=== PATIENT | male | born 1970 | race Two or more races ===

== ENCOUNTER 2019-07-07 19:12 | Inpatient (IN) | payer OTHER ==
[~2019-07-07] VITALS: Ht 180.3 cm; Wt 100.0 kg
[2019-07-07] MEDS ORDERED: NITROGLYCERIN 0.2MG/HR TOPICAL PATCH TD ONE (20:15)
[2019-07-07] MEDS ORDERED: LORazepam 0.5 MG TAB PO ONE (20:15)
[2019-07-07] MEDS ORDERED: ASPirin 81 mg TAB PO ONE (20:15)
[2019-07-07 20:34] LABS: Basophils # (auto) 0.1 uL; Basophils % (auto) 0.8 % (0.0-2.0); Eosinophils # (auto) 0.1 uL; Hematocrit 48.5 % (41.0-53.0); Hemoglobin 16.8 g/dL (13.5-17.5); Lymphocytes # (auto) 1.1 uL; Lymphocytes % (auto) 15.1 % (10.0-50.0); Mean Corpuscular Hemoglobin 30.5 pg (28.0-32.0); Mean Corpuscular Hgb Conc. 34.6 g/dL (32.0-36.0); Mean Corpuscular Volume 88.2 fL (80.0-100.0); Monocytes # (auto) 0.6 uL; Neutrophils # (auto) 5.2 uL; Neutrophils % (auto) 73.1 % (37.0-80.0); Platelet Count (auto) 191 10^3/uL (140-450); Red Blood Cells 5.49 10^6/uL (4.5-5.90); Red Cell Distribution Width 13.6 % (11.8-14.3); White Blood Cell 7.1 10^3/uL (4.4-10.8)
[2019-07-07 20:50] LABS: INR 1.02 (0.9-1.15)
[2019-07-07 20:53] LABS: Albumin 4.1 g/dL (3.4-5.0); Calcium 9.2 mg/dL (8.5-10.1); Magnesium 2.3 mg/dL (1.6-2.6); Potassium 4.5 mmol/L (3.5-5.1)
[2019-07-07 21:00] LABS: BUN/Creatinine Ratio 14.7; Bilirubin, Total 0.3 mg/dL (0.2-1.0); Total Protein 7.8 g/dL (6.4-8.2)
[2019-07-07] MEDS ORDERED: SODIUM CHLORIDE 0.9% 1,000 ML IV ONE (21:15)
[2019-07-07] MEDS ORDERED: ENOXAPARIN SOD 80 MG/0.8ML SYRINGE SC ONE (21:15)
[2019-07-07] MEDS ORDERED: ENOXAPARIN SOD 30 MG/0.3 ML SYRINGE IV ONE (21:15)
[2019-07-07] MEDS ORDERED: InsuLIN REG 1unit/0.01ml Soln (100units/ml) IV ONE (21:15)
[2019-07-07 23:09] LABS: Urine Bacteria NONE SEEN /hpf (None Seen); Urine Blood Negative /uL (Negative); Urine Specific Gravity 1.033 (1.001-1.035); Urine WBC <1 /hpf (0 - 3)
[2019-07-08] VITALS (7 sets, daily range): BP systolic 138–149; BP diastolic 81–98
[2019-07-08] MEDS ORDERED: MORPHINE SULF INJ 2 MG/ML SYRINGE 1ML IV PRN (00:45)
[2019-07-08] MEDS ORDERED: NITROGLYCERIN 0.4 MG SL TAB SL PRN (00:45)
[2019-07-08] MEDS ORDERED: ATORVASTATIN 20 MG TAB PO ONE (00:45)
[2019-07-08] MEDS ORDERED: TEMAZEPAM 15 MG CAP PO PRN (00:45)
[2019-07-08] MEDS ORDERED: ACETAMINOPHEN 325 MG TAB PO PRN (00:45)
[2019-07-08] MEDS ORDERED: ONDANSETRON HCL 4 MG/2 ML VIAL IV PRN (00:45)
[2019-07-08] MEDS: SODIUM CHLORIDE 0.9% 1,000 ML IV SCH ×2 (01:08→17:11)
[2019-07-08] MEDS: METOPROLOL TARTRATE 25 MG TAB PO SCH ×3 (01:09→22:14)
[2019-07-08 02:57] LABS: Cholesterol 211 mg/dL (< 200)
[2019-07-08 02:59] LABS: HDL Cholesterol 15 mg/dL (40-59); LDL Cholesterol 169 mg/dL (< 100); Triglycerides 147 mg/dL (< 150)
--- NOTE | 2019-07-08 03:30 | NUR ---
Telemetry admit from ER [facility]K admitted to Telemetry unit. Patient oriented to Karina Haque, primary RN, unit, room, bed, and unit policies regarding patient care and visiting hours. Patient now on continuous telemetry monitoring, tele box # 76 and telemetry reading on arrival to unit is HR 84, NSR. Patient is on 2 liters of oxygen via nasal cannula. Respirations even and unlabored. Patient has no S/S of distress/SOB and no complaints of pain. Patient is AAOx4. Patient's girlfriend is at bedside. All questions and concerns addressed, patient verbalized understanding.
--- NOTE | 2019-07-08 07:00 | NUR ---
CLOSING NOTE Patient is on 2 liters of oxygen via nasal cannula. Patient's respirations even and unlabored. Patient has no S/S of distress/SOB or pain.
--- NOTE | 2019-07-08 08:00 | NUR ---
Opening Shift Note Assumed care of patient, awake and alert. No S/S of distress/SOB or pain. Instructed on POC and to call for assist PRN, will continue to monitor for changes Q1hr and PRN.
[2019-07-08] MEDS: FAMOTIDINE 20 MG TAB PO SCH ×2 (09:48→22:14)
[2019-07-08] MEDS ORDERED: ENOXAPARIN SOD 100 MG/1 ML SYRINGE SC SCH ×2 (10:00→22:00)
[2019-07-08] MEDS ORDERED: ENOXAPARIN SOD 120 MG/0.8 ML SYRINGE SC SCH (10:00)
[2019-07-08] MEDS ORDERED: NITROGLYCERIN 0.4 MG SL TAB SL ONE (10:00)
[2019-07-08] MEDS ORDERED: ASPirin 81 mg TAB PO SCH (10:00)
--- NOTE | 2019-07-08 10:30 | NUR ---
Cardiology consult Dr. Blanc at bedside, patient was advised. Possible left heart cath today.
--- NOTE | 2019-07-08 12:05 | NUR ---
Received orders from Dr. Blanc to discontinue Lovenox SC, will carry out. Addendum: 07/08/19 at 1235 by Sterling Wynn RN 1205-Dr. Blanc made aware that Lovenox 100mg SC was administered to the patient at 0948. Dr. Blanc fine with it.
[2019-07-08] MEDS ORDERED: LIDOCAINE 2%HCL (LOCAL ANESTH.) INJ 20ML MDV ONE (12:08)
[2019-07-08] MEDS ORDERED: IODIXANOL 320MG/ML 100ML BTL IV ONE (12:08)
[2019-07-08] MEDS ORDERED: ANGIOMAX 250 MG VIAL IV ONE (12:13)
[2019-07-08] MEDS ORDERED: SODIUM CHL 0.9% 0 ML ONE (12:14)
[2019-07-08] MEDS ORDERED: HEPARIN SODIUM (PORCINE) 5000 UNITS/ML 1ML VIAL ONE (12:14)
[2019-07-08] MEDS ORDERED: MIDAZOLAM HCL 1MG/1ML-2 ML VIAL ONE (12:14)
[2019-07-08] MEDS ORDERED: fentaNYL CITRATE 100 MCG/2 ML VL ONE (12:14)
[2019-07-08] MEDS ORDERED: VERAPAMIL 2.5MG/ML INJ 2ML VIAL IV ONE (12:14)
--- NOTE | 2019-07-08 12:28 | NUR ---
Patient taken to Circuit Design Engineer via bed for Left Heart Catheterization to be performed by Dr. Blanc. Consents signed by patient. Gave reports to Circuit Design Engineer
--- NOTE | 2019-07-08 13:19 | NUR ---
Received a call from Dr. Blanc, patient needs to be transferred to [place] immediately today. Patient is a candidate for CABG. Will inform hospitalist assigned about this. Patient is still in [facility] at this time.
--- NOTE | 2019-07-08 13:50 | NUR ---
Informed Dr. Hodge that patient needs to be transferred to [place] immediately today. Patient is a candidate for CABG.Patient currently in Assistant Manager recovery room.
--- NOTE | 2019-07-08 14:00 | NUR ---
Paged Angie plant utility person clinical case manager and returned call re: Transfer to [place]. Patient needs CABG. Instructions received to fax clinicals to [facility] fax # [phone].
--- NOTE | 2019-07-08 14:05 | NUR ---
Patient back to room via bed S/P LHC performed by Dr. Blanc. Reports received from Outdoor Adventure Leader RN. Patient is alert and oriented, not in respiratory distress. With vasc band left wrist intact. Bed alarm on and side rails up x2.
--- NOTE | 2019-07-08 14:20 | NUR ---
Dr. Hodge at bedside. Orders received. Patient is for transfer to [facility].
[2019-07-08] MEDS ORDERED: DEXTROSE (50%) 50ML SYRG IV PRN (14:30)
--- NOTE | 2019-07-08 14:30 | NUR ---
Deflated 2ml of air from vasc band left wrist. No bleeding noted.
--- NOTE | 2019-07-08 14:44 | NUR ---
Faxed transfer orders to [facility] fax #[phone]. Waiting for reply.
--- NOTE | 2019-07-08 14:54 | NUR ---
07/08/19 call center consultant-I received a page regarding this patient needing to be transferred to [facility]. I asked nurse Katz to fax order to [facility]. I called [facility] [phone] to speak with family preservation caseworker, was left on hold for more than 10 minutes-not able to talk with a live person, unable to leave a message. Will try again Addendum: 07/09/19 at 0907 by Angie Chang RN I spoke with Nurse Katz 07/08/19-she received a call from [facility] and they are working on the transfer.
--- NOTE | 2019-07-08 15:00 | NUR ---
Deflated 2ml of air at vasc band left wrist no bleeding noted.
--- NOTE | 2019-07-08 15:35 | NUR ---
Deflated 2ml of air at vasc band, left wrist. Noted to have some minimal bleeding to the site. Inflated back the 2ml of air. Will check in 30 minutes.
--- NOTE | 2019-07-08 16:11 | NUR ---
Received a call from [facility], verified that they already received the faxed informations about the patient for transfer. They will call again for bed availability.
--- NOTE | 2019-07-08 16:15 | NUR ---
Deflated 2ml of air via vasc band, left wrist. No bleeding noted.
--- NOTE | 2019-07-08 17:00 | NUR ---
Deflated 2ml of air from vasc band, left wrist. No bleeding noted.
[2019-07-08] MEDS: InsuLIN REG 1unit/0.01ml Soln (100units/ml) SC SCH ×2 (17:11→22:15)
[2019-07-08] MEDS: ACCU-CHEK COMFORT CURVE STRIP VI SCH ×2 (17:11→22:14)
--- NOTE | 2019-07-08 17:30 | NUR ---
Vasc band on left wrist removed. No bleeding noted. Tegaderm dressing applied.
--- NOTE | 2019-07-08 18:53 | NUR ---
Received a call from [facility] MD will be Dr. Rosi Edge. ETA [id number].
--- NOTE | 2019-07-08 19:20 | NUR ---
Gave reports to Xavier LAFLEUR at [facility].
--- NOTE | 2019-07-08 20:00 | NUR ---
Opening Shift Note Assumed care of patient, awake and alert. No S/S of distress/SOB or pain. Patient is on 2 liters of oxygen via nasal cannula. Respirations even and unlabored. Instructed on POC and to call for assist PRN, will continue to monitor for changes Q1hr and PRN.
[2019-07-08] MEDS ORDERED: ATORVASTATIN 20 MG TAB PO SCH (22:00)
--- NOTE | 2019-07-08 22:55 | NUR ---
Discharge Transfers Patient is being transferred to [facility], patient is to follow up with accepting doctor at the receiving facility. Patient has no S/S of SOB/Distress or pain. Patient is asymptomatic. Patient being transferred via ambulance per ACLS protocol.
== END 2019-07-08 22:55 | disposition short-term general hospital (02) | DRG 281 ==
LOC: ER 19:12 → TELE 19:13 → TELE-WESTW 07-08 01:12
PROVIDERS: ADMIT Nurse Practitioner; ATTEND Nurse Practitioner
PROC: 4A023N7 Measurement of Cardiac Sampling and Pressure, Left Heart, Percutaneous Approach (ICD-10-PCS; principal; 2019-07-08)
PROC: B211YZZ Fluoroscopy of Multiple Coronary Arteries using Other Contrast (ICD-10-PCS; 2019-07-08)
PROC: B215YZZ Fluoroscopy of Left Heart using Other Contrast (ICD-10-PCS; 2019-07-08)
DX: I21.4 Non-ST elevation (NSTEMI) myocardial infarction (principal); E87.1 Hypo-osmolality and hyponatremia; E11.21 Type 2 diabetes mellitus with diabetic nephropathy; E11.51 Type 2 diabetes mellitus with diabetic peripheral angiopathy without gangrene; E78.5 Hyperlipidemia, unspecified; E66.01 Morbid (severe) obesity due to excess calories; Z68.30 Body mass index [BMI] 30.0-30.9, adult; I10 Essential (primary) hypertension; E88.81 Metabolic syndrome and other insulin resistance; I25.10 Atherosclerotic heart disease of native coronary artery without angina pectoris
CPT/HCPCS: 36415; 71045; 80053; 80061; 81001; 82962; 83036; 83735; 83880; 84484; 85025; 85610; 85730; 93005; 93306; 96361; 96372; 96374; 99152; 99291; G0378; J1815; J2250; J2405; Q9967

== ENCOUNTER → 2019-08-10 | Emergency (ER) | payer OTHER | END | disposition left against medical advice (07) | LOC: ER 00:35 | DX: I10 Essential (primary) hypertension (principal); Z53.21 Procedure and treatment not carried out due to patient leaving prior to being seen by health care provider ==

== ENCOUNTER 2023-04-26 20:10 | Emergency (ER) | payer OTHER ==
[~2023-04-26] VITALS: Ht 182.9 cm; Wt 110.0 kg
[2023-04-26] MEDS ORDERED: ASPirin 325 MG TAB PO ONE (21:00)
[2023-04-26 21:26] LABS: Basophils # (auto) 0.1 10 ^3/uL (0-0.2); Basophils % (auto) 0.7 % (0.0-2.0); Eosinophils # (auto) 0.1 10 ^3/uL (0-0.8); Eosinophils % (auto) 0.6 % (0.0-7.0); Hemoglobin 15.3 g/dL (13.5-17.5); Lymphocytes # (auto) 0.7 10 ^3/uL (0.4-5.4); Mean Corpuscular Hemoglobin 30.3 pg (28.0-32.0); Mean Corpuscular Volume 89.1 fL (80.0-100.0); Monocytes # (auto) 1.3 10 ^3/uL (0-1.3); Monocytes % (auto) 13.8 % (0.0-12.0); Neutrophils # (auto) 7.2 10 ^3/uL (1.6-8.6); Neutrophils % (auto) 76.9 % (37.0-80.0); Nucleated Red Blood Cells % 0.2 %; Red Blood Cells 5.05 10^6/uL (4.5-5.90); Red Cell Distribution Width 13.6 % (11.8-14.3); White Blood Cell 9.3 10^3/uL (4.4-10.8)
[2023-04-26 21:41] LABS: INR 1.14 (0.9-1.15); Partial Thromboplastin Time 29.8 SEC (24.5-34.5); Prothrombin Time 11.9 sec (9.3-11.8)
[2023-04-26 21:42] LABS: Alanine Aminotransferase 37 U/L (7-40); Albumin 4.5 g/dL (3.2-4.8); Alkaline Phosphatase 74 U/L (46-116); Anion Gap 9 (5-15); Aspartate Aminotransferase 25 U/L (13-40); BUN/Creatinine Ratio 15.5 (10.0-20.0); Blood Urea Nitrogen 17 mg/dL (9-23); Carbon Dioxide 27 mmol/L (20-30); Chloride 101 mmol/L (98-107); Glucose 195 mg/dL (74-106); Potassium 4.1 mmol/L (3.5-5.1); Sodium 137 mmol/L (136-145)
[2023-04-26 21:43] LABS: Bilirubin, Total 0.6 mg/dL (0.2-1.0); Total Protein 7.5 g/dL (5.7-8.2)
[2023-04-26 21:55] LABS: Magnesium 2.1 mg/dL (1.6-2.6)
[2023-04-27 01:13] LABS: COVID19 ANTIGEN SOFIA FIA NEGATIVE (NEGATIVE)
[2023-04-27] MEDS ORDERED: ALBU108A5 IN ×4 (01:53→03:56)
[2023-04-27] MEDS ORDERED: IPRATROPIUM BROM 0.5 MG/2.5ML INH SOL NEB ONE (02:00)
[2023-04-27] MEDS ORDERED: ALBUTEROL SULF 2.5 MG/0.5ML(0.5%) NEB SOLN NEB ONE (02:00)
[2023-04-27] MEDS ORDERED: CEFA1TAB PO (03:53)
[2023-04-27 04:34] VITALS: BP 133/71; PULSE 97; RESP 20; TEMP 97.9; O2SAT 93
== END 2023-04-27 04:44 | disposition home or self-care (01) ==
LOC: ER 20:10
DX: J40 Bronchitis, not specified as acute or chronic (principal); E11.9 Type 2 diabetes mellitus without complications; E78.5 Hyperlipidemia, unspecified; I10 Essential (primary) hypertension; Z98.890 Other specified postprocedural states; Z20.822 Contact with and (suspected) exposure to COVID-19
CPT/HCPCS: 36415; 71045; 80053; 83735; 83880; 84484; 85025; 85610; 85730; 87426; 93005; 94640; 99285; J7644